=== PATIENT | male | born 1990 | race Caucasian/White ===

== ENCOUNTER 2017-10-07 02:09 | Emergency (ER) | payer OTHER ==
[~2017-10-07] VITALS: Ht 180.3 cm; Wt 169.5 kg
[2017-10-07 02:32] LABS: HEMATOCRIT 42.4 % (38.0-50.0); HEMOGLOBIN 15.2 G/DL (12.5-16.6); MCHC 35.8 G/DL (30.0-36.0); MCV 89.3 FL (86-99); PLATELET COUNT 230 K/uL (156-360); RBC DIS.WIDTH-CV 13.7 % (11.8-14.6); RBC DIS.WIDTH-SD 44.4 % (39-53); RED BLOOD COUNT 4.75 M/uL (4.00-5.50); WHITE BLOOD COUNT 11.6 K/uL (4.1-10.2)
[2017-10-07 02:41] LABS: CHLORIDE 105 mEq/L (99-109); POTASSIUM 4.1 mEq/L (3.7-5.4); SODIUM 141 mEq/L (136-147)
[2017-10-07 02:43] LABS: GLUCOSE 106 mg/dL (70-99)
[2017-10-07 02:47] LABS: CREATININE 0.9 mg/dL (0.6-1.3)
[2017-10-07 02:48] LABS: UREA NITROGEN (BUN) 11 mg/dL (9-23)
[2017-10-07 02:49] LABS: GFR ESTIMATE (CALCULATED) > 59 mL/min/ (58.99-99999)
[2017-10-07 02:54] LABS: TROP-I INTERPRETATION NEGATIVE; TROPONIN-I < 0.01 ng/mL (0.0-0.30)
[2017-10-07 05:09] VITALS: BP 134/78
== END 2017-10-07 05:13 | disposition home or self-care (01) ==
LOC: EME 02:09
DX: R07.9 Chest pain, unspecified (principal); M54.9 Dorsalgia, unspecified; F10.129 Alcohol abuse with intoxication, unspecified; Y90.9 Presence of alcohol in blood, level not specified; F41.9 Anxiety disorder, unspecified
CPT/HCPCS: 71046; 80048; 84484; 85027; 93005; 99281; 99284